=== PATIENT | male | born 1950 | race Caucasian/White ===

== ENCOUNTER 2018-01-14 13:34 | Observation (INO) | payer OTHER ==
[2018-01-14] MEDS ORDERED: Sodium Chloride 0.9% 2.5 ML Syringe FLUSH PRN (14:18)
[2018-01-14] MEDS ORDERED: Sodium Chloride 0.9% 10 ML Syringe FLUSH PRN (14:18)
[2018-01-14] MEDS ORDERED: Sodium Chloride 0.9% 1,000 ML IV ONE (14:20)
--- NOTE | 2018-01-14 14:20 | EDM.PDOC ---
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 He has had similar small episodes like this once or twice a year for the last couple years Review of Systems: As per history of present illness and below otherwise all systems reviewed and negative. Past medical history: As per history of present illness and as reviewed below otherwise noncontributory. Surgical history: As per history of present illness and as reviewed below otherwise noncontributory. Social history: No reported history of drug or alcohol abuse. Family history: As per history of present illness and as reviewed below otherwise noncontributory. Physical exam: Alert and oriented male answering questions appropriately PERRLA hand grasps are equal no drift noted. Unable to really lift his left leg from the table but complains of a bad hip and this is not unusual. HEENT: Atraumatic, normocehpalic, pupils reactive, negative for conjunctival pallor or scleral icterus, mucous membranes moist, throat clear, neck supple, nontender, trachea midline. Lungs: Mild crackles on auscultation, breath sounds equal bilaterally, chest non tender. Heart: S1S2, regular, negative for clicks, rubs, or JVD. Abdomen: Soft, nondistended, nontender. Negative for masses or hepatossplenmegaly. Negative for costovertebral tenderness. Pelvis: Stable nontender. Genitourinary: Deferred. Rectal: Deferred Extremities: Atraumatic, negative for cords or calf pain. Neurovascular unremarkable. Neuro: Awake, alert, oriented. Cranial nerves II through XII unremarkable. Cerebellum unremarkable. Motor and sensory unremarkable throughout. Exam nonfocal. Discussed case with Dr. Huffman who has accepted the patient for observation on telemetry Discussed this case with the patient and his who are agreeable to this admission. Diagnostics: [CBC CMP amylase lipase lactic acid EKG head CT] Therapeutics: [IV fluids] Impression: [Near syncopal episode] Plan: []Refer to observation Definitive disposition and diagnosis as appropriate pending reevaluation and review of above. Onset: Today, Sudden Duration: Hour(s): Location: Reports: Head, Generalized headache Pain Score (Numeric/FACES): 1 - Related Data Allergies Allergy/AdvReac Type Severity Reaction Status Date / Time No Known Allergies Allergy Verified 01/14/18 13:43 Home Meds: Home Meds . [No Known Home Meds] 04/25/16 [History] Past Medical History HEENT History: Reports: None Cardiovascular History: Reports: None Respiratory History: Reports: None Gastrointestinal History: Reports: None Genitourinary History: Reports: None Musculoskeletal History: Reports: Fracture Neurological History: Reports: None Psychiatric History: Reports: None Endocrine/Metabolic History: Reports: None Hematologic History: Reports: None Immunologic History: Reports: None Oncologic (Cancer) History: Reports: None Dermatologic History: Reports: None - Infectious Disease History Infectious Disease History: Reports: Chicken Pox, Shingles - Past Surgical History Head Surgeries/Procedures: Reports: None Musculoskeletal Surgical History: Reports: Shoulder Surgery Social & Family History - Family History Family Medical History: Noncontributory - Tobacco Use Smoking Status *Q: Current Every Day Smoker Years of Tobacco use: 35 Packs/Tins Daily: 1 - Caffeine Use Caffeine Use: Reports: Coffee - Recreational Drug Use Recreational Drug Use: No ED ROS GENERAL - Review of Systems Review Of Systems: ROS reveals no pertinent complaints other than HPI. ED EXAM, GENERAL - Physical Exam Exam: See Below (see dictation) EKG INTERPRETATION EKG Date: 01/14/18 Rhythm: NSR Comparison: NA - No Prior EKG Course - Vital Signs Last Recorded V/S: Last Vital Signs Temp 36.1 C 01/14/18 13:41 Pulse 68 01/14/18 13:41 Resp 18 01/14/18 13:41 BP 125/78 01/14/18 13:41 Pulse Ox 98 01/14/18 13:41 - Orders/Labs/Meds Orders: Active Orders 24 hr Category Date Time Status Patient Status [ADT] Stat ADT 01/14/18 16:31 Ordered Cardiac Monitoring [RC] . DIRECTED Care 01/14/18 14:18 Active EKG Documentation Completion [RC] STAT Care 01/14/18 14:18 Active Oxygen Therapy, ED [RC] ASDIRECTED Care 01/14/18 14:21 Active Head wo Cont [CT] Stat Exams 01/14/18 15:35 Taken CULTURE URINE [RM] Stat Lab 01/14/18 14:59 Received Sodium Chloride 0.9% [Saline Flush] Med 01/14/18 14:18 Active 10 ml FLUSH ASDIRECTED PRN Sodium Chloride 0.9% [Saline Flush] Med 01/14/18 14:18 Active 2.5 ml FLUSH ASDIRECTED PRN Saline Lock Insert [OM.PC] Stat Oth 01/14/18 14:18 Ordered Medication Orders Sodium Chloride (Saline Flush) 10 ml FLUSH ASDIRECTED PRN PRN Reason: Keep Vein Open Sodium Chloride (Saline Flush) 2.5 ml FLUSH ASDIRECTED PRN PRN Reason: Keep Vein Open Labs: Laboratory Tests 01/14/18 01/14/18 01/14/18 Range/Units 14:30 14:30 14:30 WBC 11.08 H (4.0-11.0) K/uL RBC 4.35 L (4.50-5.90) M/uL Hgb 15.0 (13.0-17.0) g/dL Hct 44.0 (38.0-50.0) % MCV 101.1 H (80.0-98.0) fL MCH 34.5 H (27.0-32.0) pg MCHC 34.1 (31.0-37.0) g/dL RDW Std Deviation 47.4 (28.0-62.0) fl RDW Coeff of Marly 13 (11.0-15.0) % Plt Count 243 (150-400) K/uL MPV 9.60 (7.40-12.00) fL Neut % (Auto) 80.7 H (48.0-80.0) % Lymph % (Auto) 13.3 L (16.0-40.0) % [place] % (Auto) 4.2 (0.0-15.0) % Eos % (Auto) 1.6 (0.0-7.0) % Baso % (Auto) 0.2 (0.0-1.5) % Neut # (Auto) 8.9 H (1.4-5.7) K/uL Lymph # (Auto) 1.5 (0.6-2.4) K/uL [place] # (Auto) 0.5 (0.0-0.8) K/uL Eos # (Auto) 0.2 (0.0-0.7) K/uL Baso # (Auto) 0.0 (0.0-0.1) K/uL Nucleated RBC % 0.0 /100WBC Nucleated RBCs # 0 K/uL INR 1.03 Sodium 139 (136-146) mmol/L Potassium 4.9 (3.5-5.1) mmol/L Chloride 105 (98-110) mmol/L Carbon Dioxide 25 (21-31) mmol/L BUN 21 (6.0-23.0) mg/dL Creatinine 0.9 (0.6-1.5) mg/dL Est Cr Clr Drug Dosing 72.06 mL/min Estimated GFR (MDRD) > 60.0 ml/min Glucose 93 (60-110) mg/dL Calcium 9.7 (8.8-10.8) mg/dL Total Bilirubin 0.6 (0.1-1.5) mg/dL AST 15 (5-40) IU/L ALT 13 (8-54) IU/L Alkaline Phosphatase 45 (40-150) Ammonia (14-68) UG/DL Troponin I < 0.10 (0.0-0.29) NG/ML B-Natriuretic Peptide (<100) PG/ML Total Protein 7.4 (6.0-8.0) g/dL Albumin 4.1 (3.4-4.8) g/dL Globulin 3.3 (2.0-3.5) g/dL Albumin/Globulin Ratio 1.2 L (1.3-2.8) Amylase 74 (10-90) U/L TSH 3rd Generation 1.84 (0.47-5.0) uIU/mL Urine Color Urine Appearance Urine pH (5.0-8.0) Ur Specific [place] (1.001-1.035) Urine Protein (NEGATIVE) mg/dL Urine Glucose (UA) (NEGATIVE) mg/dL Urine Ketones (NEGATIVE) mg/dL Urine Occult Blood (NEGATIVE) Urine Nitrite (NEGATIVE) Urine Bilirubin (NEGATIVE) Urine Urobilinogen (<2.0) EU/dL Ur Leukocyte Esterase (NEGATIVE) Urine RBC (0-2/HPF) Urine WBC (0-5/HPF) Ur Epithelial Cells (NONE-FEW) Amorphous Sediment (NEGATIVE) Urine Bacteria (NEGATIVE) Urine Mucus (NONE-MOD) Urine Opiates Screen (NEGATIVE) Ur Oxycodone Screen (NEGATIVE) Urine Methadone Screen (NEGATIVE) Ur Barbiturates Screen (NEGATIVE) Ur Phencyclidine Scrn (NEGATIVE) Ur Amphetamine Screen (NEGATIVE) U Methamphetamines Scrn (NEGATIVE) U Benzodiazepines Scrn (NEGATIVE) U Cocaine Metab Screen (NEGATIVE) U Marijuana (THC) Screen (NEGATIVE) 01/14/18 01/14/18 01/14/18 Range/Units 14:30 14:30 14:59 WBC (4.0-11.0) K/uL RBC (4.50-5.90) M/uL Hgb (13.0-17.0) g/dL Hct (38.0-50.0) % MCV (80.0-98.0) fL MCH (27.0-32.0) pg MCHC (31.0-37.0) g/dL RDW Std Deviation (28.0-62.0) fl RDW Coeff of Marly (11.0-15.0) % Plt Count (150-400) K/uL MPV (7.40-12.00) fL Neut % (Auto) (48.0-80.0) % Lymph % (Auto) (16.0-40.0) % [place] % (Auto) (0.0-15.0) % Eos % (Auto) (0.0-7.0) % Baso % (Auto) (0.0-1.5) % Neut # (Auto) (1.4-5.7) K/uL Lymph # (Auto) (0.6-2.4) K/uL [place] # (Auto) (0.0-0.8) K/uL Eos # (Auto) (0.0-0.7) K/uL Baso # (Auto) (0.0-0.1) K/uL Nucleated RBC % /100WBC Nucleated RBCs # K/uL INR Sodium (136-146) mmol/L Potassium (3.5-5.1) mmol/L Chloride (98-110) mmol/L Carbon Dioxide (21-31) mmol/L BUN (6.0-23.0) mg/dL Creatinine (0.6-1.5) mg/dL Est Cr Clr Drug Dosing mL/min Estimated GFR (MDRD) ml/min Glucose (60-110) mg/dL Calcium (8.8-10.8) mg/dL Total Bilirubin (0.1-1.5) mg/dL AST (5-40) IU/L ALT (8-54) IU/L Alkaline Phosphatase (40-150) Ammonia 25 (14-68) UG/DL Troponin I (0.0-0.29) NG/ML B-Natriuretic Peptide < 15 (<100) PG/ML Total Protein (6.0-8.0) g/dL Albumin (3.4-4.8) g/dL Globulin (2.0-3.5) g/dL Albumin/Globulin Ratio (1.3-2.8) Amylase (10-90) U/L TSH 3rd Generation (0.47-5.0) uIU/mL Urine Color YELLOW Urine Appearance CLEAR Urine pH 6.0 (5.0-8.0) Ur Specific [place] >= 1.030 (1.001-1.035) Urine Protein TRACE (NEGATIVE) mg/dL Urine Glucose (UA) NEGATIVE (NEGATIVE) mg/dL Urine Ketones NEGATIVE (NEGATIVE) mg/dL Urine Occult Blood TRACE-INTACT (NEGATIVE) Urine Nitrite NEGATIVE (NEGATIVE) Urine Bilirubin NEGATIVE (NEGATIVE) Urine Urobilinogen 0.2 (<2.0) EU/dL Ur Leukocyte Esterase NEGATIVE (NEGATIVE) Urine RBC 0-1 (0-2/HPF) Urine WBC RARE (0-5/HPF) Ur Epithelial Cells FEW (NONE-FEW) Amorphous Sediment LIGHT (NEGATIVE) Urine Bacteria FEW (NEGATIVE) Urine Mucus MODERATE (NONE-MOD) Urine Opiates Screen (NEGATIVE) Ur Oxycodone Screen (NEGATIVE) Urine Methadone Screen (NEGATIVE) Ur Barbiturates Screen (NEGATIVE) Ur Phencyclidine Scrn (NEGATIVE) Ur Amphetamine Screen (NEGATIVE) U Methamphetamines Scrn (NEGATIVE) U Benzodiazepines Scrn (NEGATIVE) U Cocaine Metab Screen (NEGATIVE) U Marijuana (THC) Screen (NEGATIVE) 01/14/18 Range/Units 14:59 WBC (4.0-11.0) K/uL RBC (4.50-5.90) M/uL Hgb (13.0-17.0) g/dL Hct (38.0-50.0) % MCV (80.0-98.0) fL MCH (27.0-32.0) pg MCHC (31.0-37.0) g/dL RDW Std Deviation (28.0-62.0) fl RDW Coeff of Marly (11.0-15.0) % Plt Count (150-400) K/uL MPV (7.40-12.00) fL Neut % (Auto) (48.0-80.0) % Lymph % (Auto) (16.0-40.0) % [place] % (Auto) (0.0-15.0) % Eos % (Auto) (0.0-7.0) % Baso % (Auto) (0.0-1.5) % Neut # (Auto) (1.4-5.7) K/uL Lymph # (Auto) (0.6-2.4) K/uL [place] # (Auto) (0.0-0.8) K/uL Eos # (Auto) (0.0-0.7) K/uL Baso # (Auto) (0.0-0.1) K/uL Nucleated RBC % /100WBC Nucleated RBCs # K/uL INR Sodium (136-146) mmol/L Potassium (3.5-5.1) mmol/L Chloride (98-110) mmol/L Carbon Dioxide (21-31) mmol/L BUN (6.0-23.0) mg/dL Creatinine (0.6-1.5) mg/dL Est Cr Clr Drug Dosing mL/min Estimated GFR (MDRD) ml/min Glucose (60-110) mg/dL Calcium (8.8-10.8) mg/dL Total Bilirubin (0.1-1.5) mg/dL AST (5-40) IU/L ALT (8-54) IU/L Alkaline Phosphatase (40-150) Ammonia (14-68) UG/DL Troponin I (0.0-0.29) NG/ML B-Natriuretic Peptide (<100) PG/ML Total Protein (6.0-8.0) g/dL Albumin (3.4-4.8) g/dL Globulin (2.0-3.5) g/dL Albumin/Globulin Ratio (1.3-2.8) Amylase (10-90) U/L TSH 3rd Generation (0.47-5.0) uIU/mL Urine Color Urine Appearance Urine pH (5.0-8.0) Ur Specific [place] (1.001-1.035) Urine Protein (NEGATIVE) mg/dL Urine Glucose (UA) (NEGATIVE) mg/dL Urine Ketones (NEGATIVE) mg/dL Urine Occult Blood (NEGATIVE) Urine Nitrite (NEGATIVE) Urine Bilirubin (NEGATIVE) Urine Urobilinogen (<2.0) EU/dL Ur Leukocyte Esterase (NEGATIVE) Urine RBC (0-2/HPF) Urine WBC (0-5/HPF) Ur Epithelial Cells (NONE-FEW) Amorphous Sediment (NEGATIVE) Urine Bacteria (NEGATIVE) Urine Mucus (NONE-MOD) Urine Opiates Screen NEGATIVE (NEGATIVE) Ur Oxycodone Screen NEGATIVE (NEGATIVE) Urine Methadone Screen NEGATIVE (NEGATIVE) Ur Barbiturates Screen NEGATIVE (NEGATIVE) Ur Phencyclidine Scrn NEGATIVE (NEGATIVE) Ur Amphetamine Screen NEGATIVE (NEGATIVE) U Methamphetamines Scrn NEGATIVE (NEGATIVE) U Benzodiazepines Scrn NEGATIVE (NEGATIVE) U Cocaine Metab Screen NEGATIVE (NEGATIVE) U Marijuana (THC) Screen NEGATIVE (NEGATIVE) Meds: Medications Generic Name Dose Route Start Last Admin Trade Name Freq PRN Reason Stop Dose Admin Sodium Chloride 10 ml 01/14/18 14:18 Saline Flush FLUSH ASDIRECTED PRN Keep Vein Open Sodium Chloride 2.5 ml 01/14/18 14:18 Saline Flush FLUSH ASDIRECTED PRN Keep Vein Open Discontinued Medications Generic Name Dose Route Start Last Admin Trade Name Freq PRN Reason Stop Dose Admin Sodium Chloride 1,000 mls @ 999 mls/hr 01/14/18 14:20 Normal Saline IV 01/14/18 15:20 STAT ONE Departure - Departure Time of Disposition: 16:35 Disposition: Refer to Observation Condition: Good Clinical Impression: Near syncope Instructions: Near-Syncope, [id number] Referrals: PCP,None [Primary Care Provider] - Forms: ED Department Discharge - My Orders Last 24 Hours: My Active Orders 01/14/18 14:18 Cardiac Monitoring [RC] . DIRECTED EKG Documentation Completion [RC] STAT Sodium Chloride 0.9% [Saline Flush] 10 ml FLUSH ASDIRECTED PRN Sodium Chloride 0.9% [Saline Flush] 2.5 ml FLUSH ASDIRECTED PRN Saline Lock Insert [OM.PC] Stat 01/14/18 14:21 Oxygen Therapy, ED [RC] ASDIRECTED 01/14/18 14:59 CULTURE URINE [RM] Stat 01/14/18 15:35 Head wo Cont [CT] Stat 01/14/18 16:31 Patient Status [ADT] Stat - Assessment/Plan Last 24 Hours: My Active Orders 01/14/18 14:18 Cardiac Monitoring [RC] . DIRECTED EKG Documentation Completion [RC] STAT Sodium Chloride 0.9% [Saline Flush] 10 ml FLUSH ASDIRECTED PRN Sodium Chloride 0.9% [Saline Flush] 2.5 ml FLUSH ASDIRECTED PRN Saline Lock Insert [OM.PC] Stat 01/14/18 14:21 Oxygen Therapy, ED [RC] ASDIRECTED 01/14/18 14:59 CULTURE URINE [RM] Stat 01/14/18 15:35 Head wo Cont [CT] Stat 01/14/18 16:31 Patient Status [ADT] Stat
[2018-01-14 15:03] LABS: CHLORIDE,CL 105 mmol/L (98-110); SODIUM,NA 139 mmol/L (136-146)
--- NOTE | 2018-01-14 16:32 | PCM.HP ---
H&P History of Present Illness - General Date of Service: 01/14/18 Admit Problem/Dx: Near syncope Source of Information: Patient, Family History Limitations: Reports: No Limitations - History of Present Illness Initial Comments - Free Text/Narative: 67-year-old male presenting to the emergency department by EMS from [facility] for a near syncopal episode with no significant past medical history. Patient is accompanied by his who helps with the history. Patient states that while he was "raking corn" with his son he became lightheaded, sweaty, hot , and felt generalized weakness. He also reports a salty taste in his mouth as well as nausea. He did not vomit but felt completely weak. He denies any specific left or right-sided weakness but generalized weakness. Observers also state that he was very pale. His and son state that he was slurring his speech but did not notice any facial drooping. Patient states that this has happened in the past approximately twice per year he has had similar episodes. He denies any associated chest pain, palpitations, shortness of breath, or syncopal events. Up until the event he was feeling his normal self. He does admit to a cough with some clear phlegm production. He denies any fever, chills , diarrhea, sore throat, abdominal pain, leg pain or swelling. Patient states that he does smoke cigars but he does not inhale. 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 He also reports that he has noticed over the past year that his right toes become numb and now his left toes are starting become numb as well. He has no history of diabetes and has been checked for this in the past. He normally follows with the [place]. He reports no allergies to medications or recent illness. Of note: Patient does report an approximate 40 lb wt loss over the past few years. Emergency department: CBC showed mild leukocytosis of 11.08, CMP, troponin, UA, urine tox, influenza were all unremarkable. EKG showed no acute signs of ischemia. CT head unremarkable. Patient admitted for near syncope. headache Pain Score (Numeric/FACES): 1 - Related Data Allergies/Adverse Reactions: Allergies Allergy/AdvReac Type Severity Reaction Status Date / Time No Known Allergies Allergy Verified 01/14/18 13:43 Home Medications: Home Meds . [No Known Home Meds] 04/25/16 [History] Past Medical History HEENT History: Reports: None Cardiovascular History: Reports: None Respiratory History: Reports: None Gastrointestinal History: Reports: None Genitourinary History: Reports: None Musculoskeletal History: Reports: Fracture Neurological History: Reports: None Psychiatric History: Reports: None Endocrine/Metabolic History: Reports: None Hematologic History: Reports: None Immunologic History: Reports: None Oncologic (Cancer) History: Reports: None Dermatologic History: Reports: None - Infectious Disease History Infectious Disease History: Reports: Chicken Pox, Shingles - Past Surgical History Head Surgeries/Procedures: Reports: None Musculoskeletal Surgical History: Reports: Shoulder Surgery Social & Family History - Family History Family Medical History: Noncontributory - Tobacco Use Smoking Status *Q: Current Every Day Smoker Years of Tobacco use: 35 Packs/Tins Daily: 1 - Caffeine Use Caffeine Use: Reports: Coffee - Recreational Drug Use Recreational Drug Use: No H&P Review of Systems - Review of Systems: Review Of Systems: See Below General: Reports: Weakness, Fatigue. Denies: Fever, Chills, Malaise HEENT: Reports: Headaches. Denies: Sinus Congestion, Sore Throat Pulmonary: Reports: Cough, Sputum. Denies: Shortness of Breath, Wheezing Cardiovascular: Denies: Chest Pain, Palpitations, Edema Gastrointestinal: Denies: Abdominal Pain, Black Stool, Bloody Stool, Diarrhea, Nausea, Vomiting Genitourinary: Denies: Dysuria, Hematuria Musculoskeletal: Denies: Neck Pain, Leg Pain Skin: Denies: Cyanosis Psychiatric: Denies: Confusion Neurological: Reports: Headache, Trouble Speaking, Weakness. Denies: Confusion , Dizziness Hematologic/Lymphatic: Denies: Anemia Immunologic: Denies: Anaphylaxis Exam - Exam Exam: See Below - Vital Signs Vital Signs: Last Vital Signs Temp 96.9 F 01/14/18 13:41 Pulse 68 01/14/18 13:41 Resp 18 01/14/18 13:41 BP 125/78 01/14/18 13:41 Pulse Ox 98 01/14/18 13:41 Weight: 65.771 kg - Exam Quality Assessment: DVT Prophylaxis General: Alert, Oriented, Cooperative HEENT: Conjunctiva Clear, EACs Clear, EOMI, Hearing Intact, Mucosa Moist & [employer] , Nares Patent, Normal Nasal Septum, Posterior Pharynx Clear, PERRLA Neck: Supple, Trachea Midline, 2 Lungs: Clear to Auscultation, Normal Respiratory Effort Cardiovascular: Regular Rate, Regular Rhythm GI/Abdominal Exam: Normal Bowel Sounds, Soft, Non-Tender, No Organomegaly, No Distention (Male) Exam: Deferred Rectal (Males) Exam: Deferred Back Exam: Normal Inspection Extremities: Normal Inspection, Non-Tender, No Pedal Edema, Normal Capillary Refill Peripheral Pulses: 2+: Radial (L), Radial (R), Posterior Tibial (L), Posterior Tibial (R), Dorsalis Pedis (L), Dorsalis Pedis (R) Skin: Warm, Dry, Intact Neurological: Cranial Nerves Intact, Strength Equal Bilateral, Normal Speech, Normal Tone, Sensation Intact Neuro Extensive - Mental Status: Alert, Oriented x3, Normal Mood/Affect, Normal Cognition, Memory Intact Neuro Extensive - Motor, Sensory, Reflexes: CN II-XII Intact. No: Tongue Deviation (L), Tongue Deviation (R), Dysarthria, Receptive Aphasia, Expressive Aphasia, Facial palsy (L), Facial Palsy (R), Facial Palsy w Forehead, Hemeplagia (R), Hemeplagia (L), Pronator Drift (R), Pronator Drift (L), Abnormal Finger to Nose, Abnormal Heel to [place], Abnormal Light Touch Psychiatric: Alert, Normal Affect, Normal Mood - Patient Data Lab Results Last 24 hrs: Laboratory Results - last 24 hr 01/14/18 01/14/18 01/14/18 Range/Units 14:30 14:30 14:30 WBC 11.08 H (4.0-11.0) K/uL RBC 4.35 L (4.50-5.90) M/uL Hgb 15.0 (13.0-17.0) g/dL Hct 44.0 (38.0-50.0) % MCV 101.1 H (80.0-98.0) fL MCH 34.5 H (27.0-32.0) pg MCHC 34.1 (31.0-37.0) g/dL RDW Std Deviation 47.4 (28.0-62.0) fl RDW Coeff of Marly 13 (11.0-15.0) % Plt Count 243 (150-400) K/uL MPV 9.60 (7.40-12.00) fL Neut % (Auto) 80.7 H (48.0-80.0) % Lymph % (Auto) 13.3 L (16.0-40.0) % [place] % (Auto) 4.2 (0.0-15.0) % Eos % (Auto) 1.6 (0.0-7.0) % Baso % (Auto) 0.2 (0.0-1.5) % Neut # (Auto) 8.9 H (1.4-5.7) K/uL Lymph # (Auto) 1.5 (0.6-2.4) K/uL [place] # (Auto) 0.5 (0.0-0.8) K/uL Eos # (Auto) 0.2 (0.0-0.7) K/uL Baso # (Auto) 0.0 (0.0-0.1) K/uL Nucleated RBC % 0.0 /100WBC Nucleated RBCs # 0 K/uL INR 1.03 Sodium 139 (136-146) mmol/L Potassium 4.9 (3.5-5.1) mmol/L Chloride 105 (98-110) mmol/L Carbon Dioxide 25 (21-31) mmol/L BUN 21 (6.0-23.0) mg/dL Creatinine 0.9 (0.6-1.5) mg/dL Est Cr Clr Drug Dosing 72.06 mL/min Estimated GFR (MDRD) > 60.0 ml/min Glucose 93 (60-110) mg/dL Calcium 9.7 (8.8-10.8) mg/dL Total Bilirubin 0.6 (0.1-1.5) mg/dL AST 15 (5-40) IU/L ALT 13 (8-54) IU/L Alkaline Phosphatase 45 (40-150) Ammonia (14-68) UG/DL Troponin I < 0.10 (0.0-0.29) NG/ML B-Natriuretic Peptide (<100) PG/ML Total Protein 7.4 (6.0-8.0) g/dL Albumin 4.1 (3.4-4.8) g/dL Globulin 3.3 (2.0-3.5) g/dL Albumin/Globulin Ratio 1.2 L (1.3-2.8) Amylase 74 (10-90) U/L TSH 3rd Generation 1.84 (0.47-5.0) uIU/mL Urine Color Urine Appearance Urine pH (5.0-8.0) Ur Specific [place] (1.001-1.035) Urine Protein (NEGATIVE) mg/dL Urine Glucose (UA) (NEGATIVE) mg/dL Urine Ketones (NEGATIVE) mg/dL Urine Occult Blood (NEGATIVE) Urine Nitrite (NEGATIVE) Urine Bilirubin (NEGATIVE) Urine Urobilinogen (<2.0) EU/dL Ur Leukocyte Esterase (NEGATIVE) Urine RBC (0-2/HPF) Urine WBC (0-5/HPF) Ur Epithelial Cells (NONE-FEW) Amorphous Sediment (NEGATIVE) Urine Bacteria (NEGATIVE) Urine Mucus (NONE-MOD) Urine Opiates Screen (NEGATIVE) Ur Oxycodone Screen (NEGATIVE) Urine Methadone Screen (NEGATIVE) Ur Barbiturates Screen (NEGATIVE) Ur Phencyclidine Scrn (NEGATIVE) Ur Amphetamine Screen (NEGATIVE) U Methamphetamines Scrn (NEGATIVE) U Benzodiazepines Scrn (NEGATIVE) U Cocaine Metab Screen (NEGATIVE) U Marijuana (THC) Screen (NEGATIVE) 01/14/18 01/14/18 01/14/18 Range/Units 14:30 14:30 14:59 WBC (4.0-11.0) K/uL RBC (4.50-5.90) M/uL Hgb (13.0-17.0) g/dL Hct (38.0-50.0) % MCV (80.0-98.0) fL MCH (27.0-32.0) pg MCHC (31.0-37.0) g/dL RDW Std Deviation (28.0-62.0) fl RDW Coeff of Marly (11.0-15.0) % Plt Count (150-400) K/uL MPV (7.40-12.00) fL Neut % (Auto) (48.0-80.0) % Lymph % (Auto) (16.0-40.0) % [place] % (Auto) (0.0-15.0) % Eos % (Auto) (0.0-7.0) % Baso % (Auto) (0.0-1.5) % Neut # (Auto) (1.4-5.7) K/uL Lymph # (Auto) (0.6-2.4) K/uL [place] # (Auto) (0.0-0.8) K/uL Eos # (Auto) (0.0-0.7) K/uL Baso # (Auto) (0.0-0.1) K/uL Nucleated RBC % /100WBC Nucleated RBCs # K/uL INR Sodium (136-146) mmol/L Potassium (3.5-5.1) mmol/L Chloride (98-110) mmol/L Carbon Dioxide (21-31) mmol/L BUN (6.0-23.0) mg/dL Creatinine (0.6-1.5) mg/dL Est Cr Clr Drug Dosing mL/min Estimated GFR (MDRD) ml/min Glucose (60-110) mg/dL Calcium (8.8-10.8) mg/dL Total Bilirubin (0.1-1.5) mg/dL AST (5-40) IU/L ALT (8-54) IU/L Alkaline Phosphatase (40-150) Ammonia 25 (14-68) UG/DL Troponin I (0.0-0.29) NG/ML B-Natriuretic Peptide < 15 (<100) PG/ML Total Protein (6.0-8.0) g/dL Albumin (3.4-4.8) g/dL Globulin (2.0-3.5) g/dL Albumin/Globulin Ratio (1.3-2.8) Amylase (10-90) U/L TSH 3rd Generation (0.47-5.0) uIU/mL Urine Color YELLOW Urine Appearance CLEAR Urine pH 6.0 (5.0-8.0) Ur Specific [place] >= 1.030 (1.001-1.035) Urine Protein TRACE (NEGATIVE) mg/dL Urine Glucose (UA) NEGATIVE (NEGATIVE) mg/dL Urine Ketones NEGATIVE (NEGATIVE) mg/dL Urine Occult Blood TRACE-INTACT (NEGATIVE) Urine Nitrite NEGATIVE (NEGATIVE) Urine Bilirubin NEGATIVE (NEGATIVE) Urine Urobilinogen 0.2 (<2.0) EU/dL Ur Leukocyte Esterase NEGATIVE (NEGATIVE) Urine RBC 0-1 (0-2/HPF) Urine WBC RARE (0-5/HPF) Ur Epithelial Cells FEW (NONE-FEW) Amorphous Sediment LIGHT (NEGATIVE) Urine Bacteria FEW (NEGATIVE) Urine Mucus MODERATE (NONE-MOD) Urine Opiates Screen (NEGATIVE) Ur Oxycodone Screen (NEGATIVE) Urine Methadone Screen (NEGATIVE) Ur Barbiturates Screen (NEGATIVE) Ur Phencyclidine Scrn (NEGATIVE) Ur Amphetamine Screen (NEGATIVE) U Methamphetamines Scrn (NEGATIVE) U Benzodiazepines Scrn (NEGATIVE) U Cocaine Metab Screen (NEGATIVE) U Marijuana (THC) Screen (NEGATIVE) 01/14/18 Range/Units 14:59 WBC (4.0-11.0) K/uL RBC (4.50-5.90) M/uL Hgb (13.0-17.0) g/dL Hct (38.0-50.0) % MCV (80.0-98.0) fL MCH (27.0-32.0) pg MCHC (31.0-37.0) g/dL RDW Std Deviation (28.0-62.0) fl RDW Coeff of Marly (11.0-15.0) % Plt Count (150-400) K/uL MPV (7.40-12.00) fL Neut % (Auto) (48.0-80.0) % Lymph % (Auto) (16.0-40.0) % [place] % (Auto) (0.0-15.0) % Eos % (Auto) (0.0-7.0) % Baso % (Auto) (0.0-1.5) % Neut # (Auto) (1.4-5.7) K/uL Lymph # (Auto) (0.6-2.4) K/uL [place] # (Auto) (0.0-0.8) K/uL Eos # (Auto) (0.0-0.7) K/uL Baso # (Auto) (0.0-0.1) K/uL Nucleated RBC % /100WBC Nucleated RBCs # K/uL INR Sodium (136-146) mmol/L Potassium (3.5-5.1) mmol/L Chloride (98-110) mmol/L Carbon Dioxide (21-31) mmol/L BUN (6.0-23.0) mg/dL Creatinine (0.6-1.5) mg/dL Est Cr Clr Drug Dosing mL/min Estimated GFR (MDRD) ml/min Glucose (60-110) mg/dL Calcium (8.8-10.8) mg/dL Total Bilirubin (0.1-1.5) mg/dL AST (5-40) IU/L ALT (8-54) IU/L Alkaline Phosphatase (40-150) Ammonia (14-68) UG/DL Troponin I (0.0-0.29) NG/ML B-Natriuretic Peptide (<100) PG/ML Total Protein (6.0-8.0) g/dL Albumin (3.4-4.8) g/dL Globulin (2.0-3.5) g/dL Albumin/Globulin Ratio (1.3-2.8) Amylase (10-90) U/L TSH 3rd Generation (0.47-5.0) uIU/mL Urine Color Urine Appearance Urine pH (5.0-8.0) Ur Specific [place] (1.001-1.035) Urine Protein (NEGATIVE) mg/dL Urine Glucose (UA) (NEGATIVE) mg/dL Urine Ketones (NEGATIVE) mg/dL Urine Occult Blood (NEGATIVE) Urine Nitrite (NEGATIVE) Urine Bilirubin (NEGATIVE) Urine Urobilinogen (<2.0) EU/dL Ur Leukocyte Esterase (NEGATIVE) Urine RBC (0-2/HPF) Urine WBC (0-5/HPF) Ur Epithelial Cells (NONE-FEW) Amorphous Sediment (NEGATIVE) Urine Bacteria (NEGATIVE) Urine Mucus (NONE-MOD) Urine Opiates Screen NEGATIVE (NEGATIVE) Ur Oxycodone Screen NEGATIVE (NEGATIVE) Urine Methadone Screen NEGATIVE (NEGATIVE) Ur Barbiturates Screen NEGATIVE (NEGATIVE) Ur Phencyclidine Scrn NEGATIVE (NEGATIVE) Ur Amphetamine Screen NEGATIVE (NEGATIVE) U Methamphetamines Scrn NEGATIVE (NEGATIVE) U Benzodiazepines Scrn NEGATIVE (NEGATIVE) U Cocaine Metab Screen NEGATIVE (NEGATIVE) U Marijuana (THC) Screen NEGATIVE (NEGATIVE) Result Diagrams: 01/14/18 14:30 01/14/18 14:30 Boris Results Last 24 hrs: Microbiology 01/14/18 14:52 Influenza Type A Antigen Screen - Final Nasopharyngeal Swab NEGATIVE INFLUENZA A VIRUS AG Influenza Type B Antigen Screen - Final NEGATIVE INFLUENZA B VIRUS AG *Q Meaningful Use (ADM) - VTE *Q VTE Criteria *Q: - Stroke *Q Stroke Criteria *Q: - AMI *Q AMI Criteria *Q: - Problem List (1) Slurring of speech SNOMED Code(s): 800337567 ICD Code: R47.81 - SLURRED SPEECH Status: Acute Priority: High Current Visit: Yes (2) Near syncope SNOMED Code(s): 272596772 ICD Code: R55 - SYNCOPE AND COLLAPSE Status: Acute Priority: High Current Visit: Yes Problem List Initiated/Reviewed/Updated: Yes Orders Last 24hrs: Active Orders 24 hr Category Date Time Status Cardiac Monitoring [RC] . DIRECTED Care 01/14/18 14:18 Active EKG Documentation Completion [RC] STAT Care 01/14/18 14:18 Active Oxygen Therapy, ED [RC] ASDIRECTED Care 01/14/18 14:21 Active Head wo Cont [CT] Stat Exams 01/14/18 15:35 Taken CULTURE URINE [RM] Stat Lab 01/14/18 14:59 Received Sodium Chloride 0.9% [Saline Flush] Med 01/14/18 14:18 Active 10 ml FLUSH ASDIRECTED PRN Sodium Chloride 0.9% [Saline Flush] Med 01/14/18 14:18 Active 2.5 ml FLUSH ASDIRECTED PRN Saline Lock Insert [OM.PC] Stat Oth 01/14/18 14:18 Ordered Medication Orders Sodium Chloride (Saline Flush) 10 ml FLUSH ASDIRECTED PRN PRN Reason: Keep Vein Open Sodium Chloride (Saline Flush) 2.5 ml FLUSH ASDIRECTED PRN PRN Reason: Keep Vein Open Assessment/Plan Comment:: 67-year-old male admitted near syncope with no significant past medical history. Near syncope: Patient has had multiple episodes of this in the past. Most have been unobserved however this one observers reported that he did have some slurring of speech but no significant focal neurologic deficits. Secondary to this history I do think it is warranted that we do a TIA workup. He will be placed on telemetry and will get a lipid panel, MRI brain, MRA head and neck, echocardiogram, as well as hemoglobin A1c. We will also start him on an ASA 81 mg. He did receive 325 mg emergency department. We'll also trend his troponins every 6 hours however there are no signs of acute ischemic changes on EKG and initial troponin was negative. VTE proph: SCD, Heparin Dispo: 1-2 days pending. Would like to have a new PCP established on discharge.
[2018-01-14] MEDS ORDERED: Aspirin 81 MG Tab.Chew PO ONE (17:06)
[2018-01-14] MEDS ORDERED: Temazepam 15 MG Cap PO PRN (17:16)
[2018-01-14] MEDS ORDERED: Ondansetron 4 MG/2 ML SDV IVPUSH PRN (17:16)
[2018-01-14] MEDS ORDERED: Ondansetron 4 MG Tab.DIS PO PRN (17:16)
[2018-01-14] MEDS ORDERED: Morphine 2 MG/ML Syringe IVPUSH PRN (17:16)
[2018-01-14] MEDS ORDERED: Acetaminophen 325 MG Tab PO PRN (17:16)
[2018-01-14] MEDS: Lactated Ringers 1,000 ML IV SCH (18:11)
[2018-01-14] MEDS: Heparin Sodium 5,000 Units/ML Vial SUBCUT SCH (18:37)
[2018-01-15 03:23] LABS: CHLORIDE,CL 109 mmol/L (98-110); SODIUM,NA 141 mmol/L (136-146)
[2018-01-15] MEDS: Lactated Ringers 1,000 ML IV SCH (06:11)
[2018-01-15] MEDS: Heparin Sodium 5,000 Units/ML Vial SUBCUT SCH (06:12)
[2018-01-15] MEDS ORDERED: Aspirin 81 MG Tab.Chew PO SCH (09:00)
--- NOTE | 2018-01-15 11:21 | PCM.PN ---
- General Info Date of Service: 01/15/18 Admission Dx/Problem (Free Text): Near syncope Subjective Update: Doing well this morning. No concerns. Ambulating per self in room. No chest pain , palpitations or SOB. No syncope or lightheadedness. Functional Status: Reports: Pain Controlled, Tolerating Diet, Ambulating, Urinating - Review of Systems HEENT: Reports: No Symptoms Pulmonary: Reports: No Symptoms. Denies: Shortness of Breath Cardiovascular: Reports: No Symptoms. Denies: Chest Pain Gastrointestinal: Reports: No Symptoms. Denies: Abdominal Pain, Nausea, Vomiting Genitourinary: Reports: No Symptoms. Denies: Dysuria, Frequency, Burning Musculoskeletal: Reports: No Symptoms. Denies: Neck Pain Neurological: Reports: No Symptoms. Denies: Confusion, Trouble Speaking Psychiatric: Reports: No Symptoms. Denies: Confusion - Patient Data Vitals - Most Recent: Last Vital Signs Temp 98.7 F 01/15/18 08:00 Pulse 69 01/15/18 08:00 Resp 18 01/15/18 08:00 BP 108/63 01/15/18 08:00 Pulse Ox 96 01/15/18 08:00 Orthostatic Blood Pressure [ 121/78 Standing] Orthostatic Blood Pressure [ 135/79 Sitting] Orthostatic Blood Pressure [ 117/72 Supine] Weight - Most Recent: 65.771 kg I&O - Last 24 Hours: Intake & Output 01/14/18 01/15/18 01/15/18 22:59 06:59 14:59 Intake Total 1550 Output Total 825 Balance 725 Lab Results Last 24 Hours: Laboratory Results - last 24 hr 01/14/18 01/15/18 01/15/18 Range/Units 20:33 02:23 02:23 WBC 7.23 (4.0-11.0) K/uL RBC 3.64 L (4.50-5.90) M/uL Hgb 12.6 L (13.0-17.0) g/dL Hct 36.9 L (38.0-50.0) % MCV 101.4 H (80.0-98.0) fL MCH 34.6 H (27.0-32.0) pg MCHC 34.1 (31.0-37.0) g/dL RDW Std Deviation 46.8 (28.0-62.0) fl RDW Coeff of Marly 13 (11.0-15.0) % Plt Count 225 (150-400) K/uL MPV 9.70 (7.40-12.00) fL Neut % (Auto) 50.1 (48.0-80.0) % Lymph % (Auto) 36.0 (16.0-40.0) % [place] % (Auto) 6.2 (0.0-15.0) % Eos % (Auto) 7.1 H (0.0-7.0) % Baso % (Auto) 0.6 (0.0-1.5) % Neut # (Auto) 3.6 (1.4-5.7) K/uL Lymph # (Auto) 2.6 H (0.6-2.4) K/uL [place] # (Auto) 0.5 (0.0-0.8) K/uL Eos # (Auto) 0.5 (0.0-0.7) K/uL Baso # (Auto) 0.0 (0.0-0.1) K/uL Nucleated RBC % 0.0 /100WBC Nucleated RBCs # 0 K/uL Sodium 141 (136-146) mmol/L Potassium 3.9 (3.5-5.1) mmol/L Chloride 109 (98-110) mmol/L Carbon Dioxide 25 (21-31) mmol/L BUN 17 (6.0-23.0) mg/dL Creatinine 1.0 (0.6-1.5) mg/dL Est Cr Clr Drug Dosing 64.86 mL/min Estimated GFR (MDRD) > 60.0 ml/min Glucose 97 (60-110) mg/dL Hemoglobin A1c (4.5-6.2) % Calcium 8.6 L (8.8-10.8) mg/dL Phosphorus 3.5 (2.4-4.7) mg/dL Magnesium 1.9 (1.5-2.3) mEq/L Troponin I < 0.10 (0.0-0.29) NG/ML Triglycerides 48 (10-190) mg/dL Cholesterol 127 L (131-240) mg/dL LDL Cholesterol, Calc 87 (60-180) mg/dL VLDL Cholesterol 10 (5-55) mg/dL HDL Cholesterol 30 L (40-80) mg/dL Cholesterol/HDL Ratio 4.2 (3.3-6.0) 01/15/18 01/15/18 Range/Units 02:23 02:23 WBC (4.0-11.0) K/uL RBC (4.50-5.90) M/uL Hgb (13.0-17.0) g/dL Hct (38.0-50.0) % MCV (80.0-98.0) fL MCH (27.0-32.0) pg MCHC (31.0-37.0) g/dL RDW Std Deviation (28.0-62.0) fl RDW Coeff of Marly (11.0-15.0) % Plt Count (150-400) K/uL MPV (7.40-12.00) fL Neut % (Auto) (48.0-80.0) % Lymph % (Auto) (16.0-40.0) % [place] % (Auto) (0.0-15.0) % Eos % (Auto) (0.0-7.0) % Baso % (Auto) (0.0-1.5) % Neut # (Auto) (1.4-5.7) K/uL Lymph # (Auto) (0.6-2.4) K/uL [place] # (Auto) (0.0-0.8) K/uL Eos # (Auto) (0.0-0.7) K/uL Baso # (Auto) (0.0-0.1) K/uL Nucleated RBC % /100WBC Nucleated RBCs # K/uL Sodium (136-146) mmol/L Potassium (3.5-5.1) mmol/L Chloride (98-110) mmol/L Carbon Dioxide (21-31) mmol/L BUN (6.0-23.0) mg/dL Creatinine (0.6-1.5) mg/dL Est Cr Clr Drug Dosing mL/min Estimated GFR (MDRD) ml/min Glucose (60-110) mg/dL Hemoglobin A1c 5.6 (4.5-6.2) % Calcium (8.8-10.8) mg/dL Phosphorus (2.4-4.7) mg/dL Magnesium (1.5-2.3) mEq/L Troponin I < 0.10 (0.0-0.29) NG/ML Triglycerides (10-190) mg/dL Cholesterol (131-240) mg/dL LDL Cholesterol, Calc (60-180) mg/dL VLDL Cholesterol (5-55) mg/dL HDL Cholesterol (40-80) mg/dL Cholesterol/HDL Ratio (3.3-6.0) Med Orders - Current: Current Medications Acetaminophen (Tylenol) 650 mg PO Q4H PRN PRN Reason: Pain (Mild 1-3)/fever Aspirin (Aspirin) 81 mg PO DAILY [facility] Last Admin: 01/15/18 09:13 Dose: 81 mg Morphine Sulfate (Morphine) 2 mg IVPUSH Q2H PRN PRN Reason: Pain (severe 7-10) Stop: 01/15/18 17:18 Ondansetron HCl (Zofran Odt) 4 mg PO Q4H PRN PRN Reason: nausea, able to take PO Ondansetron HCl (Zofran) 4 mg IVPUSH Q4H PRN PRN Reason: Nausea Sodium Chloride (Saline Flush) 10 ml FLUSH ASDIRECTED PRN PRN Reason: Keep Vein Open Sodium Chloride (Saline Flush) 2.5 ml FLUSH ASDIRECTED PRN PRN Reason: Keep Vein Open Temazepam (Restoril) 15 mg PO BEDTIME PRN PRN Reason: Sleep Discontinued Medications Aspirin (Aspirin) 324 mg PO ONETIME ONE Stop: 01/14/18 17:07 Last Admin: 01/14/18 17:14 Dose: 324 mg Heparin Sodium (Porcine) (Heparin Sodium) 5,000 units SUBCUT Q12H [facility] Last Admin: 01/15/18 06:12 Dose: Not Given Sodium Chloride (Normal Saline) 1,000 mls @ 999 mls/hr IV STAT ONE Stop: 01/14/18 15:20 Last Admin: 01/14/18 17:00 Dose: 999 mls/hr Lactated Ringer's (Ringers, Lactated) 1,000 mls @ 125 mls/hr IV ASDIRECTED [facility] Last Admin: 01/15/18 06:11 Dose: 125 mls/hr - Exam General: Alert, Oriented, Cooperative, No Acute Distress Neck: Supple Lungs: Clear to Auscultation, Normal Respiratory Effort Cardiovascular: Regular Rate, Regular Rhythm GI/Abdominal Exam: Normal Bowel Sounds, Soft, Non-Tender, No Organomegaly, No Distention, No Abnormal Bruit, No Mass, Pelvis Stable Back Exam: Normal Inspection, Full Range of Motion Extremities: Normal Inspection, Normal Range of Motion, Non-Tender, No Pedal Edema, Normal Capillary Refill Neurological: No New Focal Deficit Psy/Mental Status: Alert, Normal Affect, Normal Mood - Problem List & Annotations (1) Near syncope SNOMED Code(s): 100292300 Code(s): R55 - SYNCOPE AND COLLAPSE Status: Acute Priority: High Current Visit: Yes (2) Slurring of speech SNOMED Code(s): 176772494 Code(s): R47.81 - SLURRED SPEECH Status: Acute Priority: High Current Visit: Yes (3) Tobacco abuse SNOMED Code(s): 863925363 Code(s): Z72.0 - TOBACCO USE Status: Chronic Current Visit: Yes - Problem List Review Problem List Initiated/Reviewed/Updated: Yes - My Orders Last 24 Hours: My Active Orders 01/15/18 09:00 Aspirin 81 mg PO DAILY 01/15/18 10:22 Orthostatic Vital Signs [RC] ASDIRECTED - Plan Plan:: 67-year-old male admitted near syncope with no significant past medical history. 1. Near syncope: No events overnight. Continue on telemetry, SR, no ectopy of arrhythmia. Lipid panel today revealed, Total cholesterol 127, Triglycerides 48 , LDL 87 and HDL 30, A1c 5.6. MRI brain, MRA head and neck, echocardiogram to be completed today. Continue ASA 81 mg. Troponins negative. Orthostatic VS negative. Possible home this evening after MRIs completed. Arrange follow up with PCP for now. VTE prophylaxis: Declining both SCDs and Heparin. Ambulation encouraged. Dispo: This evening or in am.
--- NOTE | 2018-01-15 13:32 | CT ---
EXAM DATE: 01/14/18 PATIENT'S AGE: 67 Patient: MAGDA BEVERLY Facility: [place], [place] Site . Site : 1950 Study: CT Head WO CONT [id number]/25/2018 3:52:05 PM Ordering Physician: Doctor Nunez Final Report: INDICATION: Headache. Dizzy. Lightheaded started today. TECHNIQUE: CT head without IV contrast. FINDINGS: Tiny calcifications in the basal ganglia benign. Minimal cerebral and cerebellar atrophy appropriate for age. No intracranial hemorrhage, edema, or mass effect. Remainder negative. Impression : No acute intracranial disease. Chronic intracranial disease as described above. Please note that all CT scans at this facility use dose modulation, iterative reconstruction, and/or weight-based dosing when appropriate to reduce radiation dose to as low as reasonably achievable. Dictated by Bhanu Ge MD @ Jan 14 2018 4:04PM (Electronic Signature) Report Signed by Proxy. THANG
--- NOTE | 2018-01-15 14:01 | CR ---
EXAM DATE: 01/14/18 PATIENT'S AGE: 67 Patient: MAGDA BEVERLY Facility: [place], [place] Site . Site : 1950 Study: XRay Chest [id number]/25/2018 9:51:17 PM Ordering Physician: Nathanael Will Final Report: INDICATION: Productive cough. TECHNIQUE: PA and lateral chest x-ray. FINDINGS: Old or healing right rib fractures. Heart size normal. Mild ectasia thoracic aorta. No focal dense infiltrate or consolidation in either lung. Lowermost chest not included on this exam. Chest otherwise unremarkable. Dictated by Bhanu Ge MD @ Jan 14 2018 9:57PM (Electronic Signature) Report Signed by Proxy. THANG
[2018-01-15] MEDS ORDERED: Carboxymethylcellulose Sodium 0.5% Ophth Soln 0.4 ML UD Box of 30 EYEBOTH PRN (15:24)
[2018-01-15] MEDS ORDERED: Gadobenate Dimeglumine 529 MG/ML 20 ML SDV IVPUSH STA (20:50)
[2018-01-16 00:28] VITALS: BP 136/88
--- NOTE | 2018-01-16 10:31 | MR ---
EXAM DATE: 01/14/18 PATIENT'S AGE: 67 Patient: MAGDA BEVERLY Facility: [place], [place] Site . Site : 1950 Study: MRI Head Angio [id number]/26/2018 10:17:46 PM Ordering Physician: Nathanael Will Final Report: EXAMINATION: MRI BRAIN, MRA HEAD AND NECK DATE: 01/15/2018. HISTORY: Patient with syncope and slurred speech. TECHNIQUE: Multi-sequence, multiplanar MRI examination of the brain with and without contrast followed by 3D TOF MRA of the head and 3D TOF MRA of the neck was performed. COMPARISON: Head CT 01/14/2018. FINDINGS: MRI BRAIN: There is no restricted diffusion in the brain to indicate the presence of acute ischemia. There are scattered foci of T2/FLAIR signal hyperintensity in the periventricular and subcortical white matter of the right frontal lobe, likely related to microangiopathic changes. There is diffuse prominence of the CSF spaces, consistent with volume loss. There is ring/ghosting artifact in the posterior fossa in the post-contrast images of the brain. There is no abnormal enhancement in the brain. The orbits are unremarkable. The paranasal sinuses are unremarkable. The mastoid air cells are clear. The calvarium is unremarkable. MRA HEAD: The intracranial segments of the right internal carotid artery are normal. The right posterior communicating artery is seen. 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 The visualized portions of the right middle and anterior cerebral arteries are normal. The intracranial segments of the left internal carotid artery are normal. The left posterior communicating artery is seen. The visualized portions of the left middle and anterior cerebral arteries are normal. The vertebral arteries are codominant. The visualized intracranial portions of the vertebral arteries are normal. The basilar artery is normal. The right posterior cerebral artery is normal. The left posterior cerebral artery is normal. MRA NECK WITHOUT CONTRAST: The origins of the great vessels are grossly patent. The innominate artery is grossly patent. Both subclavian arteries are grossly patent. The right common carotid artery is grossly patent. The right internal and external carotid arteries are grossly patent. The left common carotid artery is grossly patent. The left internal and external carotid arteries are grossly patent. The right vertebral artery is grossly patent. The left vertebral artery is grossly patent. IMPRESSION: 1. No evidence of acute ischemia in the brain. 2. 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 3. Normal MRA of the head and neck. Oscar Flood M.D. Neurointerventionalist [facility] [employer] Pager: Office/Appointments: Answering Service: [facility]: [email or web address] Dictated by: Oscar Flood MD @ 01/15/2018 23:39:59 (Electronic Signature) Report Signed by Proxy. [facility]
--- NOTE | 2018-01-16 10:33 | MR ---
EXAM DATE: 01/14/18 PATIENT'S AGE: 67 Patient: MAGDA BEVERLY Facility: [place], [place] Site . Site : 1950 Study: MRI Head W/ and W/O Cont [id number]/26/2018 10:19:32 PM Ordering Physician: Nathanael Will Final Report: EXAMINATION: MRI BRAIN, MRA HEAD AND NECK DATE: 01/15/2018. HISTORY: Patient with syncope and slurred speech. TECHNIQUE: Multi-sequence, multiplanar MRI examination of the brain with and without contrast followed by 3D TOF MRA of the head and 3D TOF MRA of the neck was performed. COMPARISON: Head CT 01/14/2018. FINDINGS: MRI BRAIN: There is no restricted diffusion in the brain to indicate the presence of acute ischemia. There are scattered foci of T2/FLAIR signal hyperintensity in the periventricular and subcortical white matter of the right frontal lobe, likely related to microangiopathic changes. There is diffuse prominence of the CSF spaces, consistent with volume loss. There is ring/ghosting artifact in the posterior fossa in the post-contrast images of the brain. There is no abnormal enhancement in the brain. The orbits are unremarkable. The paranasal sinuses are unremarkable. The mastoid air cells are clear. The calvarium is unremarkable. MRA HEAD: The intracranial segments of the right internal carotid artery are normal. The right posterior communicating artery is seen. 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 The visualized portions of the right middle and anterior cerebral arteries are normal. The intracranial segments of the left internal carotid artery are normal. The left posterior communicating artery is seen. The visualized portions of the left middle and anterior cerebral arteries are normal. The vertebral arteries are codominant. The visualized intracranial portions of the vertebral arteries are normal. The basilar artery is normal. The right posterior cerebral artery is normal. The left posterior cerebral artery is normal. MRA NECK WITHOUT CONTRAST: The origins of the great vessels are grossly patent. The innominate artery is grossly patent. Both subclavian arteries are grossly patent. The right common carotid artery is grossly patent. The right internal and external carotid arteries are grossly patent. The left common carotid artery is grossly patent. The left internal and external carotid arteries are grossly patent. The right vertebral artery is grossly patent. The left vertebral artery is grossly patent. IMPRESSION: 1. No evidence of acute ischemia in the brain. 2. 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 3. Normal MRA of the head and neck. Oscar Flood M.D. Neurointerventionalist [facility] [employer] Pager: Office/Appointments: Answering Service: [facility]: [email or web address] Dictated by: Oscar Flood MD @ 01/15/2018 23:40:27 (Electronic Signature) Report Signed by Proxy. [facility]
--- NOTE | 2018-01-16 10:37 | MR ---
EXAM DATE: 01/14/18 PATIENT'S AGE: 67 Patient: MAGDA BEVERLY Facility: [place], [place] Site Site : 1950 Study: MRI Neck Angio [id number]/26/2018 11:32:24 PM Ordering Physician: Nathanael Will Final Report: EXAMINATION: MRI BRAIN, MRA HEAD AND NECK DATE: 01/15/2018. HISTORY: Patient with syncope and slurred speech. TECHNIQUE: Multi-sequence, multiplanar MRI examination of the brain with and without contrast followed by 3D TOF MRA of the head and 3D TOF MRA of the neck was performed. COMPARISON: Head CT 01/14/2018. FINDINGS: MRI BRAIN: There is no restricted diffusion in the brain to indicate the presence of acute ischemia. There are scattered foci of T2/FLAIR signal hyperintensity in the periventricular and subcortical white matter of the right frontal lobe, likely related to microangiopathic changes. There is diffuse prominence of the CSF spaces, consistent with volume loss. There is ring/ghosting artifact in the posterior fossa in the post-contrast images of the brain. There is no abnormal enhancement in the brain. The orbits are unremarkable. The paranasal sinuses are unremarkable. The mastoid air cells are clear. The calvarium is unremarkable. MRA HEAD: The intracranial segments of the right internal carotid artery are normal. The right posterior communicating artery is seen. 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 The visualized portions of the right middle and anterior cerebral arteries are normal. The intracranial segments of the left internal carotid artery are normal. The left posterior communicating artery is seen. The visualized portions of the left middle and anterior cerebral arteries are normal. The vertebral arteries are codominant. The visualized intracranial portions of the vertebral arteries are normal. The basilar artery is normal. The right posterior cerebral artery is normal. The left posterior cerebral artery is normal. MRA NECK WITHOUT CONTRAST: The origins of the great vessels are grossly patent. The innominate artery is grossly patent. Both subclavian arteries are grossly patent. The right common carotid artery is grossly patent. The right internal and external carotid arteries are grossly patent. The left common carotid artery is grossly patent. The left internal and external carotid arteries are grossly patent. The right vertebral artery is grossly patent. The left vertebral artery is grossly patent. IMPRESSION: 1. No evidence of acute ischemia in the brain. 2. 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 3. Normal MRA of the head and neck. Oscar Flood M.D. Neurointerventionalist [facility] [employer] Pager: Office/Appointments: Answering Service: [facility]: [email or web address] Dictated by: Oscar Flood MD @ 01/15/2018 23:40:14 (Electronic Signature) Report Signed by Proxy. [facility]
--- NOTE | 2018-01-16 14:02 | PCM.DCSUM1 ---
Discharge Summary - Hospital Course HPI Initial Comments: 67-year-old male admitted 01/14/18 for near syncope with no significant past medical history. Brief History: Patient was accompanied by his who helps with the history. Patient stated that while he was "raking corn" with his son he became lightheaded, sweaty, hot, and felt generalized weakness. He also reported a salty taste in his mouth as well as nausea. He did not vomit but felt completely weak. He denied any specific left or right-sided weakness but generalized weakness. Observers also stated that he was very pale. His and son stated that he was slurring his speech but did not notice any facial drooping. Patient stated that this has happened in the past approximately twice per year he has had similar episodes. He denied any associated chest pain, palpitations, shortness of breath, or syncopal events. Up until the event he was feeling his normal self. He did admit to a cough with some clear phlegm production. He denied any fever, chills, diarrhea, sore throat, abdominal pain, leg pain or swelling. Patient stated that he does smoke cigars but he does not inhale. 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 He also reported that he has noticed over the past year that his right toes become numb and now his left toes are starting to become numb as well. He has no history of diabetes and has been checked for this in the past. [facility] He reported no allergies to medications or recent illness. Of note: Patient did report an approximate 40 lb wt loss over the past few years. - Discharge Data Discharge Date: 01/15/18 Discharge Disposition: Home, Self-Care 01 Condition: Good - Discharge Diagnosis/Problem(s) (1) Slurring of speech SNOMED Code(s): 037253029 ICD Code: R47.81 - SLURRED SPEECH Status: Resolved Priority: High (2) Near syncope SNOMED Code(s): 525607941 ICD Code: R55 - SYNCOPE AND COLLAPSE Status: Acute Priority: High - Patient Instructions Diet: Usual Diet as Tolerated Activity: Rest and Relax Today Driving: Do Not Drive Showering/Bathing: May Shower Notify Provider of: Fever, Increased Pain, Nausea and/or Vomiting - Discharge Plan Home Medications: Home Meds . [No Known Home Meds] 04/25/16 [History] Patient Handouts: Near-Syncope, [id number] Referrals: Nimesh Bingham MD [Physician] - 01/22/18 2:30 pm - Discharge Summary/Plan Comment DC Time >30 min.: Yes Discharge Summary/Plan Comment: 67-year-old male admitted 01/14/18 for near syncope with no significant past medical history. Patient was accompanied by his who helps with the history. Patient stated that while he was "raking corn" with his son he became lightheaded, sweaty, hot , and felt generalized weakness. He also reported a salty taste in his mouth as well as nausea. He did not vomit but felt completely weak. He denied any specific left or right-sided weakness but generalized weakness. Observers also stated that he was very pale. His and son stated that he was slurring his speech but did not notice any facial drooping. Patient stated that this has happened in the past approximately twice per year he has had similar episodes. He denied any associated chest pain, palpitations, shortness of breath, or syncopal events. Up until the event he was feeling his normal self. He did admit to a cough with some clear phlegm production. He denied any fever, chills , diarrhea, sore throat, abdominal pain, leg pain or swelling. Patient stated that he does smoke cigars but he does not inhale. 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 He also reported that he has noticed over the past year that his right toes become numb and now his left toes are starting to become numb as well. He has no history of diabetes and has been checked for this in the past. He normally follows with [facility]. He reported no allergies to medications or recent illness. Of note: Patient did report an approximate 40 lb wt loss over the past few years. Emergency department: CBC showed mild leukocytosis of 11.08, CMP, troponin, UA, urine tox, influenza were all unremarkable. EKG showed no acute signs of ischemia. CT head unremarkable. Patient admitted for near syncope. Repeat troponins were all negative. Lipid panel revealed a total cholesterol of 127, LDL 87, and HDL of 30, TSH was normal and MRI/MRA of brain, head and neck showed no evidence of acute ischemia in the brain, mild microangiopathic changes and diffuse parenchymal volume loss with a normal MRA of the head and neck. Patient's near syncopal events may be related to volume depletion as patient admitted to not drinking fluids and prodominately caffiene throught the day but warrants further work up in outpatient setting. Of note his Urine culture did grow E-coli but was thought to be contaminate as patient was asymptomatic and initial UA was unremarkable. Patient was discharged in good condition with follow-up appointments scheduled with a local PCP. He was instructed to return to the ED if he had any new or worsening symptoms. - General Info Date of Service: 01/16/18 Admission Dx/Problem (Free Text: Near syncope Subjective Update: Doing well. No return of symptoms. Adamant about being discharged today after tests. - Review of Systems General: Denies: Fever, Weakness, Fatigue HEENT: Denies: Headaches, Visual Changes Pulmonary: Denies: Shortness of Breath, Hemoptysis Cardiovascular: Denies: Chest Pain, Palpitations Gastrointestinal: Denies: Abdominal Pain, Constipation, Difficulty Swallowing, Nausea, Vomiting Genitourinary: Denies: Dysuria, Hematuria Musculoskeletal: Denies: Neck Pain, Leg Pain Skin: Denies: Cyanosis Neurological: Denies: Confusion, Dizziness, Headache Psychiatric: Denies: Confusion - Patient Data Vitals - Most Recent: Last Vital Signs Temp 98.7 F 01/16/18 00:00 Pulse 92 01/16/18 00:00 Resp 18 01/16/18 00:00 BP 136/88 01/16/18 00:00 Pulse Ox 97 01/16/18 00:00 Orthostatic Blood Pressure [ 121/78 Standing] Orthostatic Blood Pressure [ 135/79 Sitting] Orthostatic Blood Pressure [ 117/72 Supine] Weight - Most Recent: 65.771 kg I&O - Last 24 hours: Intake & Output 01/15/18 01/16/18 01/16/18 22:59 06:59 14:59 Intake Total 560 250 Output Total 400 200 Balance 160 50 Med Orders - Current: Current Medications Discontinued Medications Acetaminophen (Tylenol) 650 mg PO Q4H PRN PRN Reason: Pain (Mild 1-3)/fever Artificial Tears (Refresh Plus 0.5%) 1 each EYEBOTH Q4H PRN PRN Reason: Itching Last Admin: 01/15/18 16:21 Dose: 1 each Aspirin (Aspirin) 324 mg PO ONETIME ONE Stop: 01/14/18 17:07 Last Admin: 01/14/18 17:14 Dose: 324 mg Aspirin (Aspirin) 81 mg PO DAILY [facility] Last Admin: 01/15/18 09:13 Dose: 81 mg Gadobenate Dimeglumine (Multihance) 20 ml IVPUSH ONETIME STA Stop: 01/15/18 20:51 Last Admin: 01/15/18 20:50 Dose: 14 ml Heparin Sodium (Porcine) (Heparin Sodium) 5,000 units SUBCUT Q12H [facility] Last Admin: 01/15/18 06:12 Dose: Not Given Sodium Chloride (Normal Saline) 1,000 mls @ 999 mls/hr IV STAT ONE Stop: 01/14/18 15:20 Last Admin: 01/14/18 17:00 Dose: 999 mls/hr Lactated Ringer's (Ringers, Lactated) 1,000 mls @ 125 mls/hr IV ASDIRECTED [facility] Last Admin: 01/15/18 06:11 Dose: 125 mls/hr Morphine Sulfate (Morphine) 2 mg IVPUSH Q2H PRN PRN Reason: Pain (severe 7-10) Stop: 01/15/18 17:18 Ondansetron HCl (Zofran Odt) 4 mg PO Q4H PRN PRN Reason: nausea, able to take PO Ondansetron HCl (Zofran) 4 mg IVPUSH Q4H PRN PRN Reason: Nausea Sodium Chloride (Saline Flush) 10 ml FLUSH ASDIRECTED PRN PRN Reason: Keep Vein Open Sodium Chloride (Saline Flush) 2.5 ml FLUSH ASDIRECTED PRN PRN Reason: Keep Vein Open Temazepam (Restoril) 15 mg PO BEDTIME PRN PRN Reason: Sleep - Exam Quality Assessment: Reports: DVT Prophylaxis General: Reports: Alert, Oriented, Cooperative, No Acute Distress HEENT: Reports: Pupils Equal, Pupils Reactive, EOMI, Mucous Membr. Moist/Plush Neck: Reports: Supple, Trachea Midline, No JVD Lungs: Reports: Clear to Auscultation, Normal Respiratory Effort Cardiovascular: Reports: Regular Rate, Regular Rhythm GI/Abdominal Exam: Normal Bowel Sounds, Soft, Non-Tender, No Organomegaly, No Distention (Male) Exam: Deferred Rectal (Males) Exam: Deferred Back Exam: Reports: Normal Inspection, Full Range of Motion Extremities: Normal Inspection, Non-Tender, No Pedal Edema, Normal Capillary Refill Skin: Reports: Warm, Dry, Intact Wound/Incisions: Reports: Healing Well Neurological: Reports: No New Focal Deficit Psy/Mental Status: Reports: Alert, Normal Affect, Normal Mood *Q Meaningful Use (DIS) - VTE *Q VTE Criteria *Q: - Stroke *Q Stroke Criteria *Q: - AMI *Q AMI Criteria *Q:
--- NOTE | 2018-01-18 15:36 | ECHO ---
EXAM DATE: 01/14/18 PATIENT'S AGE: 67 The echocardiogram report can be seen in this patient's EMR (Electronic Medical Record) in the Reports section. The report has also been scanned into PACs. THANG
== END 2018-01-16 00:10 | disposition home or self-care (01) ==
LOC: MW.ED 13:34 → MW.MS 16:31
PROVIDERS: ADMIT Family Medicine; ATTEND Family Medicine
DX: R55 Syncope and collapse (principal); R47.81 Slurred speech; F17.210 Nicotine dependence, cigarettes, uncomplicated
CPT/HCPCS: 36415; 70450; 70544; 70549; 70553; 71046; 80048; 80053; 80061; 80305; 81001; 82140; 82150; 83036; 83735; 83880; 84100; 84443; 84484; 85025; 85610; 87086; 87088; 87186; 87804; 93005; 93306; 99285; A9270; A9577; G0378; J7040; J7120; 99283